=== PATIENT | female | born 1960 | race Caucasian/White ===

== ENCOUNTER → 2016-06-11 | Outpatient (CLI) | payer BC ==
[2016-06-11 09:47] LABS: CH 32.2; CHCM 34.1; HCT 41.9 % (34.0-46.0); HDW 2.75; HGB 14.1 gm/dL (11.4-16.0); MCH 31.9 pg (25.0-35.0); MCHC 33.5 g/dL (31.0-37.0); MCV 95.1 fL (80.0-100.0); Mean Platelet Volume 7.9; RBC 4.41 m/uL (3.80-5.40); RDW 13.6 % (11.5-15.5); WBC 4.7 k/uL (3.8-10.6)
[2016-06-11 10:44] LABS: ALT 47 U/L (9-52); AST 27 U/L (14-36); Alkaline Phosphatase 63 U/L (38-126); Anion Gap 8 mmol/L; Blood Urea Nitrogen 21 mg/dL (7-17); Calcium 9.2 mg/dL (8.4-10.2); Carbon Dioxide 27 mmol/L (22-30); Chloride 106 mmol/L (98-107); Glucose 104 mg/dL (74-99); Non-African American GFR(MDRD) >60 (>60 ml/min/1.73 sqM); Potassium 4.7 mmol/L (3.5-5.1); Sodium 141 mmol/L (137-145); Total Bilirubin 0.7 mg/dL (0.2-1.3); Total Protein 6.7 g/dL (6.3-8.2)
== END | disposition home or self-care (01) ==
LOC: LABWHC1 09:09
PROVIDERS: ATTEND Psychiatry & Neurology Psychiatry
DX: E78.5 Hyperlipidemia, unspecified (principal); E03.9 Hypothyroidism, unspecified; Z79.899 Other long term (current) drug therapy
CPT/HCPCS: 36415; 80053; 84439; 84443; 85027

== ENCOUNTER → 2016-08-04 | Outpatient (CLI) | payer BC ==
[2016-08-04 07:53] LABS: Cholesterol 195 mg/dL (<200); HDL Cholesterol 48 mg/dL (40-60); Triglycerides 194 mg/dL (<150)
[2016-08-04 08:27] LABS: Hemoglobin A1C 5.6 % (4.2-6.1)
== END | disposition home or self-care (01) ==
LOC: LABWHC1 06:41
PROVIDERS: ATTEND Psychiatry & Neurology Psychiatry
DX: E78.5 Hyperlipidemia, unspecified (principal); E11.9 Type 2 diabetes mellitus without complications
CPT/HCPCS: 36415; 80061; 83036

== ENCOUNTER → 2016-11-30 | Outpatient (CLI) | payer BC ==
[2016-11-30 08:02] LABS: Glucose 95 mg/dL (74-99); Total Protein 6.6 g/dL (6.3-8.2)
[2016-11-30 08:03] LABS: ALT 60 U/L (9-52); AST 32 U/L (14-36); Alkaline Phosphatase 75 U/L (38-126); Anion Gap 6 mmol/L; Blood Urea Nitrogen 10 mg/dL (7-17); CH 32.1; CHCM 34.4; Calcium 9.2 mg/dL (8.4-10.2); Carbon Dioxide 29 mmol/L (22-30); Chloride 106 mmol/L (98-107); Cholesterol 224 mg/dL (<200); HCT 39.6 % (34.0-46.0); HDL Cholesterol 49 mg/dL (40-60); HGB 13.9 gm/dL (11.4-16.0); MCH 33.1 pg (25.0-35.0); MCHC 35.2 g/dL (31.0-37.0); MCV 93.9 fL (80.0-100.0); Mean Platelet Volume 7.7; Non-African American GFR(MDRD) >60 (>60 ml/min/1.73 sqM); Potassium 4.7 mmol/L (3.5-5.1); RBC 4.22 m/uL (3.80-5.40); RDW 13.8 % (11.5-15.5); Sodium 141 mmol/L (137-145); Total Bilirubin 0.5 mg/dL (0.2-1.3); WBC 4.5 k/uL (3.8-10.6)
== END | disposition home or self-care (01) ==
LOC: LABWHC1 06:49
PROVIDERS: ATTEND Psychiatry & Neurology Psychiatry
DX: E78.5 Hyperlipidemia, unspecified (principal); E03.9 Hypothyroidism, unspecified; Z79.899 Other long term (current) drug therapy
CPT/HCPCS: 36415; 80053; 80061; 84439; 84443; 85027

== ENCOUNTER → 2017-04-23 | Outpatient (CLI) | payer BC ==
[2017-04-23 07:39] LABS: Basophils # (A) 0.1 k/uL (0-0.2); Basophils % (A) 1 %; Eosinophils # (A) 0.2 k/uL (0-0.7); Eosinophils % (A) 3 %; HGB 14.2 gm/dL (11.4-16.0); Lymphocytes # (A) 1.8 k/uL (1.0-4.8); Lymphocytes % (A) 31 %; MCH 31.7 pg (25.0-35.0); MCHC 33.7 g/dL (31.0-37.0); Mean Platelet Volume 7.3; Monocytes # (A) 0.5 k/uL (0-1.0); Monocytes % (A) 9 %; Neutrophils # (A) 3.1 k/uL (1.3-7.7); Neutrophils % (A) 53 %; Platelet Count 268 k/uL (150-450); RBC 4.46 m/uL (3.80-5.40); RDW 14.1 % (11.5-15.5); WBC 5.8 k/uL (3.8-10.6)
[2017-04-23 09:14] LABS: Albumin 3.9 g/dL (3.5-5.0); Bilirubin, Delta 0.2 mg/dL (0.0-0.2); Bilirubin,Unconjugated 0.3 mg/dL (0.0-1.1); Total Bilirubin 0.5 mg/dL (0.2-1.3); Total Protein 6.6 g/dL (6.3-8.2)
[2017-04-23 09:30] LABS: T4, Free (Free Thyroxine) 1.14 ng/dL (0.78-2.19)
[2017-04-23 12:09] LABS: Hepatitis A Antibody IgM Non-Reactive (Non-Reactive); Hepatitis B Core IgM Non-Reactive (Non-Reactive)
== END | disposition home or self-care (01) ==
LOC: LABWHC1 06:35
PROVIDERS: ATTEND Family Medicine
DX: E03.9 Hypothyroidism, unspecified (principal); R74.8 Abnormal levels of other serum enzymes; E78.2 Mixed hyperlipidemia
CPT/HCPCS: 36415; 80061; 80074; 80076; 82550; 84439; 84443; 84481; 85025

== ENCOUNTER → 2017-05-10 | Outpatient (CLI) | payer BC ==
--- NOTE | 2017-05-10 14:00 | US ---
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 F/U previous GLAND SIZE: Right Lobe: 3.6 x 0.9 x 1.1 cm Overall Parenchyma: homogenous Left Lobe: 3.5 x 1.6 x 1.4 cm Overall Parenchyma: heterogeneous Isthmus Thickness: 0.2 cm NODULES RIGHT: # of nodules measured on right: 1 1. 0.5 X 0.3 x 0.4 cm hypoechoic solid nodule at the mid pole with well-defined margins; This nodu le is wider than tall and shows intranodular vascularity. Prior size: Not visualized on prior LEFT: # of nodules measured on left: 1 1. 2.4 X 1.6 x 1.4 cm isoechoic solid nodule at the mid pole with well-defined margins; This nodul e is wider than tall and shows intranodular vascularity. Prior size: 1.8 x 1.4 x 1.2 cm ISTHMUS: # of nodules measured in the isthmus: 2 1. 1.4 X 0.5 x 1.1 cm isoechoic solid nodule with well-defined margins This nodule is and shows in tranodular vascularity. Prior size: 1.2 x 0.4 x 1.3 cm 2. 1.0 X 0.6 x 0.9 cm hypoechoic mixed nodule with well-defined margins; This nodule is wider than tall and shows intranodular vascularity. Prior size: 1.1 x 0.9 x 0.8 cm Bilateral neck scanned, no evidence of lymphadenopathy. Left lobe nodule increased in size/ Mixed ist hmus nodule probable right medial nodule as seen on previous, unchanged Thyroid gland is overall small in size and fairly homogeneous in echotexture with a large oval fairly isoechoic solid nodule occupying majority of mid to lower pole level left thyroid. IMPRESSION: Small size thyroid with scattered nodules redemonstrated, peripheral hypervascular dominant 2.4 cm so lid nodule left thyroid lobe is slightly larger in size based on measurements.
== END | disposition home or self-care (01) ==
LOC: RADUSWWP 13:10
PROVIDERS: ATTEND Family Medicine
DX: E04.2 Nontoxic multinodular goiter (principal)
CPT/HCPCS: 76536

== ENCOUNTER 2017-09-02 12:04 | Day surgery (SDC) | payer BC ==
[2017-09-02 12:27] VITALS: TEMP 98.2
[2017-09-02 13:29] VITALS: BP 130/75; PULSE 63; RESP 14
--- NOTE | 2017-09-02 15:00 | US ---
EXAMINATION TYPE: US FNA thyroid DATE OF EXAM: 09/02/2017 COMPARISON: Ultrasound 05/10/2017 HISTORY: Thyroid nodule. Maximal barrier technique was utilized. After informed consent, skin overlying the lesion was locali zed with ultrasound and the overlying skin prepped and draped. Ultrasound was utilized using sterile technique. Lidocaine was used for local anesthesia. Four passes with a 25-gauge needle were made into the midline nodule and aspirated specimen was submitted to cytology. Following the procedure hemost asis achieved. No immediate complication. The patient discharged in stable condition. IMPRESSION: STATUS POST ULTRASOUND GUIDED FINE NEEDLE ASPIRATION OF MIDLINE ISTHMUS THYROID NODULE, P ATHOLOGY IS PENDING. THIS PROCEDURE WAS PERFORMED BY THE UNDERSIGNED.
--- NOTE | 2017-09-02 15:16 | US ---
EXAMINATION TYPE: US FNA thyroid DATE OF EXAM: 09/02/2017 COMPARISON: Thyroid ultrasound 05/10/2017 HISTORY: Thyroid nodule. Maximal barrier technique was utilized. After informed consent, skin overlying the lesion was locali zed with ultrasound and the overlying skin prepped and draped. Ultrasound was utilized using sterile technique. Lidocaine was used for local anesthesia. Four passes with a 25-gauge needle were made int o the nodule and aspirated specimen was submitted to cytology. Following the procedure hemostasis ac hieved. No immediate complication. The patient discharged in stable condition. IMPRESSION: STATUS POST ULTRASOUND GUIDED FINE NEEDLE ASPIRATION OF RIGHT-SIDED ISTHMUS THYROID NODUL E, PATHOLOGY IS PENDING. THIS PROCEDURE WAS PERFORMED BY THE UNDERSIGNED.
== END 2017-09-02 13:42 | disposition home or self-care (01) ==
LOC: RADPROMAIN 12:04
PROVIDERS: ATTEND Otolaryngology
DX: E04.2 Nontoxic multinodular goiter (principal)
CPT/HCPCS: 10022; 76942; 88173; 88305

== ENCOUNTER → 2017-12-27 | Outpatient (CLI) | payer BC ==
--- NOTE | 2017-12-27 10:01 | MM ---
Reason for exam: screening (asymptomatic). Last mammogram was performed 1 year ago. History: Patient is postmenopausal. Benign left breast US guided needle locali of the left breast, July 29, 2009. Benign US left guided VAD of the left breast, July 02, 2009. Took hormonal contraceptives for 4 years beginning at age 19. Physical Findings: A clinical breast exam by your physician is recommended on an annual basis and results should be correlated with mammographic findings. MG 3D Screening Mammo W/Cad Bilateral CC and MLO view(s) were taken. Prior study comparison: December 24, 2016, bilateral MG screening mammo w CAD. December 04, 2015, bilateral MG screening mammo w CAD. The breast tissue is heterogeneously dense. This may lower the sensitivity of mammography. There is no discrete abnormality. ASSESSMENT: Negative, BI-RAD 1 RECOMMENDATION: Routine screening mammogram of both breasts in 1 year.
== END ==
LOC: RADMAMWWP 08:16
PROVIDERS: ATTEND Obstetrics & Gynecology
DX: Z12.31 Encounter for screening mammogram for malignant neoplasm of breast (principal)
CPT/HCPCS: 77063; 77067

== ENCOUNTER → 2018-03-16 | Outpatient (CLI) | payer BC ==
--- NOTE | 2018-03-16 22:53 | US ---
EXAMINATION TYPE: US thyroid st tissue head/neck DATE OF EXAM: 03/16/2018 COMPARISON: Prior thyroid ultrasound May 10, 2017 CLINICAL HISTORY: E04.1 Thyroid Nodules. 6 Month f/u GLAND SIZE: Right Lobe: 3.2 x .8 x 1.0 cm Overall Parenchyma: homogenous Left Lobe: 3.4 x 1.4 x 1.3 cm Overall Parenchyma: heterogeneous Isthmus Thickness: 0.3m NODULES RIGHT: # of nodules measured on right: 1 1. .6X .6 x .5cm hypoechoic solid nodule at the mid pole with well-defined margins; . This nodule i s wider than tall and shows intranodular vascularity. Prior size: .5x .3 x .4cm LEFT: # of nodules measured on left: 1 1. 2.4 1.4x 1.1cmisoechoic solid nodule at the mid pole with well-defined margins; . This nodule is wider than tall and shows intranodular vascularity. Prior size: 2.6 1.6x1.4 cm ISTHMUS: # of nodules measured in the isthmus: 1 1. .9X .4 x .6cm isoechoic solid nodule with well-defined margins; . Prior size: 1.0 .6 x .9cm Bilateral neck scanned, no evidence of lymphadenopathy. Heterogeneous small size thyroid with scattered nodules redemonstrated including dominant stable left -sided 2.4 cm solid nodule. IMPRESSION: Overall stable findings, no new suspicious greater than 1 cm nodules are seen.
== END ==
LOC: RADUSMAIN 17:45
PROVIDERS: ATTEND Otolaryngology
DX: E04.1 Nontoxic single thyroid nodule (principal)
CPT/HCPCS: 76536

== ENCOUNTER → 2018-06-02 | Outpatient (CLI) | payer BC ==
[2018-06-02 07:25] LABS: HCT 44.6 % (34.0-46.0); HGB 14.6 gm/dL (11.4-16.0); MCHC 32.8 g/dL (31.0-37.0); MCV 94.5 fL (80.0-100.0); Mean Platelet Volume 6.8; Platelet Count 244 k/uL (150-450); RBC 4.72 m/uL (3.80-5.40); WBC 4.7 k/uL (3.8-10.6)
[2018-06-02 11:30] LABS: Albumin 4.3 g/dL (3.80-4.90); Albumin/Globulin Ratio 2.15 (1.60-3.17); Anion Gap 7.2 mmol/L (4.00-12.00); Calcium 9.4 mg/dL (8.7-10.3); Carbon Dioxide 28.8 mmol/L (21.6-31.8); LDL Cholesterol,Calculated 109.6 mg/dL (0.0-131.0); Potassium 4.5 mmol/L (3.5-5.5); Total Bilirubin 0.7 mg/dL (0.2-1.2); Total Protein 6.3 g/dL (6.2-8.2); VLDL Calculation 23.4 mg/dL (5.00-40.00)
== END ==
LOC: LABWHC1 06:49
PROVIDERS: ATTEND Psychiatry & Neurology Psychiatry
DX: E78.5 Hyperlipidemia, unspecified (principal)
CPT/HCPCS: 36415; 80053; 80061; 84443; 85027

== ENCOUNTER → 2018-07-06 | Outpatient (CLI) | payer BC ==
[2018-07-07 00:42] LABS: Hepatitis A Antibody IgM Non-Reactive (Non-Reactive); Hepatitis B Core IgM Non-Reactive (Non-Reactive)
== END | disposition home or self-care (01) ==
LOC: LABWHC1 17:02
PROVIDERS: ATTEND Psychiatry & Neurology Psychiatry
DX: K75.9 Inflammatory liver disease, unspecified (principal)
CPT/HCPCS: 36415; 80074

== ENCOUNTER → 2018-07-15 | Outpatient (CLI) | payer BC ==
--- NOTE | 2018-07-15 08:43 | US ---
EXAMINATION TYPE: US liver DATE OF EXAM: 07/15/2018 COMPARISON: NONE CLINICAL HISTORY: K75.9 Inflammatory liver disease, unspecified. Elevated liver enzymes EXAM MEASUREMENTS: Liver Length: 14.6 cm Gallbladder Wall: 0.2 cm CBD: 0.4 cm Right Kidney: 11.3 x 5.7 x 5.3 cm Pancreas: visualized portions wnl, limited by overlying midline bowel gas Liver: attenuating, increased echogenicity with decreased visualization of vessels, heterogeneous wi th 1.8cm hypoechoic area adjacent to gallbladder Gallbladder: wnl Evidence for sonographic Barillas's sign: no CBD: wnl Right Kidney: wnl IMPRESSION: 1. Correlate for hepatic steatosis.
== END | disposition home or self-care (01) ==
LOC: RADUSWWP 07:56
PROVIDERS: ATTEND Psychiatry & Neurology Psychiatry
DX: K75.9 Inflammatory liver disease, unspecified (principal)
CPT/HCPCS: 76705

== ENCOUNTER → 2018-10-17 | Outpatient (CLI) | payer BC ==
[2018-10-17 16:11] LABS: Albumin 3.7 g/dL (3.80-4.90); Albumin/Globulin Ratio 2.85 (1.60-3.17); Bilirubin, Conjugated 0.2 mg/dL (0.20-0.40); Bilirubin,Unconjugated 0.5 mg/dL; Globulin 1.3 g/dL (1.6-3.3); Total Bilirubin 0.7 mg/dL (0.2-1.2)
== END | disposition home or self-care (01) ==
LOC: LABWHC1 12:11
PROVIDERS: ATTEND Psychiatry & Neurology Psychiatry
DX: R94.5 Abnormal results of liver function studies (principal)
CPT/HCPCS: 36415; 80076

== ENCOUNTER → 2018-12-29 | Outpatient (CLI) | payer BC ==
[2018-12-29 15:41] LABS: Albumin 4.4 g/dL (3.80-4.90); Albumin/Globulin Ratio 2.32 (1.60-3.17); Bilirubin, Conjugated 0.2 mg/dL (0.20-0.40); Bilirubin,Unconjugated 0.6 mg/dL; Globulin 1.9 g/dL (1.6-3.3); Total Bilirubin 0.8 mg/dL (0.3-1.2); Total Protein 6.3 g/dL (6.2-8.2)
== END | disposition home or self-care (01) ==
LOC: LABWHC1 06:32
PROVIDERS: ATTEND Psychiatry & Neurology Psychiatry
DX: R94.5 Abnormal results of liver function studies (principal)
CPT/HCPCS: 36415; 80076

== ENCOUNTER → 2018-12-29 | Outpatient (CLI) | payer BC ==
--- NOTE | 2018-12-30 13:57 | MM ---
Reason for exam: screening (asymptomatic). Last mammogram was performed 1 year ago. History: Patient is postmenopausal. Benign left breast US guided needle locali of the left breast, July 29, 2009. Benign US left guided VAD of the left breast, July 02, 2009. Took hormonal contraceptives for 4 years beginning at age 19. Physical Findings: A clinical breast exam by your physician is recommended on an annual basis and results should be correlated with mammographic findings. MG 3D Screening Mammo W/Cad Bilateral CC and MLO view(s) were taken. Prior study comparison: December 27, 2017, bilateral MG 3d screening mammo w/cad. December 24, 2016, bilateral MG screening mammo w CAD. The breast tissue is heterogeneously dense. This may lower the sensitivity of mammography. No significant changes when compared with prior studies. ASSESSMENT: Benign, BI-RAD 2 RECOMMENDATION: Routine screening mammogram of both breasts in 1 year.
== END | disposition home or self-care (01) ==
LOC: RADMAMWWP 06:45
PROVIDERS: ATTEND Obstetrics & Gynecology
DX: Z12.31 Encounter for screening mammogram for malignant neoplasm of breast (principal)
CPT/HCPCS: 77063; 77067

== ENCOUNTER → 2019-02-24 | Outpatient (CLI) | payer BC ==
--- NOTE | 2019-02-24 07:34 | BD ---
EXAMINATION TYPE: Axial Bone Density DATE OF EXAM: 02/24/2019 COMPARISON: NONE CLINICAL HISTORY: Height: 5 FT 3 1/2 IN Weight: 204 FRAX RISK QUESTIONS: History of Fracture in Adulthood: YES Secondary Osteoporosis: 3. Menopause before 45: UNSURE RISK FACTORS HISTORY OF: Active: YES Postmenopausal woman: LATE 40'S EARLY 50'S MEDICATIONS: Thyroid Medications: YES Which medication: LEVOTHYROXINE How Long: YEARS Additional Medications: LEVOTHYROXINE, CHOLESTEROL MEDS Additional History: EXAM MEASUREMENTS: Bone mineral densitometry was performed using the [employer]. Bone mineral density as measured about the Lumbar spine is: ----- L1-L4(G/cm2): 1.283 T Score Values are as follows: ----- L2: 0.7 ----- L3: 1.2 ----- L4: 1.0 ----- L1-L4: 0.9 BASELINE Bone mineral density about the R hip (g/cm2): 0.996 Bone mineral density about the L hip (g/cm2): 0.918 T Score values are as follows: -----R Neck: -0.3 -----L Neck: -0.9 -----R Total: 0.6 -----L Total: 0.4 BASELINE Bone mineral density about the R Wrist (g/cm2): Bone mineral density about the L Wrist (g/cm2): T Score values are as follows: -----Dist. R+U: -----Prox. R+U: -----Radius total: Bone mineral density has: % since study of: IMPRESSION: No evidence for osteoporosis or osteopenia. NOTE: T-SCORE=SD OF THE YOUNG ADULT MEAN.
== END | disposition home or self-care (01) ==
LOC: RADBDWWP 07:02
PROVIDERS: ATTEND Obstetrics & Gynecology
DX: Z13.820 Encounter for screening for osteoporosis (principal); N95.1 Menopausal and female climacteric states
CPT/HCPCS: 77080

== ENCOUNTER → 2019-03-10 | Outpatient (CLI) | payer BC ==
--- NOTE | 2019-03-10 16:12 | US ---
EXAMINATION TYPE: US thyroid st tissue head/neck DATE OF EXAM: 03/10/2019 COMPARISON: Thyroid ultrasound March 16, 2018 CLINICAL HISTORY: E04.1 thyroid nodule. GLAND SIZE: Right Lobe: 2.8 x 0.9 x 0.6 cm Overall Parenchyma: homogenous Left Lobe: 4.1 x 1.6 x 1.5 cm Overall Parenchyma: heterogeneous Isthmus Thickness: 0.4 cm NODULES RIGHT: # of nodules measured on right: 1 1. 0.5 X 0.4 x 0.3 cm hypoechoic solid nodule at the lower pole with well-defined margins. This no dule is wider than tall and shows no intranodular vascularity. Prior size: 0.6 x 0.5 x 0.6 cm LEFT: # of nodules measured on left: 2 1. 2.6 X 1.3 x 1.4 cm hypoechoic solid nodule at the lower pole with well-defined margins. This no dule is wider than tall and shows intranodular vascularity; Previously biopsied per patient history. Prior size: 2.4 x 1.1 x 1.4 cm 2. 0.3 X 0.4 x 0.3 cm hypoechoic cystic nodule at the upper pole with well-defined margins. This no dule is wider than tall and shows no intranodular vascularity. not previously seen ISTHMUS: # of nodules measured in the isthmus: 1 1. 0.8 X 0.4 x 0.4 cm isoechoic mixed nodule at the lower pole with poorly defined margins. This n odule is wide as is tall and shows no intranodular vascularity. Prior size: 0.9 x 0.6 x 0.4 cm Bilateral neck scanned: no evidence of lymphadenopathy. Persistent overall small thyroid with asymmetric diminished size right thyroid lobe and scattered sta ble small nodules along with dominant left-sided nodule which has been biopsied in the past. No new s uspicious greater than 1 cm nodules. IMPRESSION: As above.
== END | disposition home or self-care (01) ==
LOC: RADUSWWP 15:29
PROVIDERS: ATTEND Otolaryngology
DX: E04.2 Nontoxic multinodular goiter (principal); R22.0 Localized swelling, mass and lump, head
CPT/HCPCS: 76536

== ENCOUNTER 2019-03-14 08:25 | Day surgery (SDC) | payer BC ==
[2019-03-13 09:01] VITALS: BMI 35.2
[~2019-03-14 08:25] MED LIST: DEXAMETHASONE SOD PHOSPHATE 10 MG/ML 1 ML VIAL IV ONE; LACTATED RINGERS 1,000 ML IV SCH; LIDOCAINE 1% 20 ML VIAL (10MG/ML) FOR IV START INTRADERMA PRN
[2019-03-14 09:36] VITALS: RESP 16; TEMP 97.5
[2019-03-14] MEDS ORDERED: PROPOFOL 10 MG/ML 20 ML VIAL IV ONE (11:03)
--- NOTE | 2019-03-14 11:45 | P.PCN ---
Date of Procedure: 03/14/19 Description of Procedure: BRIEF HISTORY: Patient is a 59-year-old female presenting for outpatient colonoscopy for evaluation of symptoms of altered bowel habits/change in bowel habits. She reports intermittent episodes of loose stool. No increased frequency of bowel movements. No blood per rectum. No family history of colon cancer. PROCEDURE PERFORMED: Colonoscopy with biopsy and polypectomy. PREOPERATIVE DIAGNOSIS: Change in bowel habits, last colonoscopy at the age of 51. ESTIMATED BLOOD LOSS: Minimal. IV sedation per Anesthesia. PROCEDURE: After informed consent was obtained, the patient, was brought into the endoscopy unit. IV sedation was administered by Anesthesia under continuous monitoring. Digital rectal examination was normal. Initially the Olympus CF-190 flexible video colonoscope was then inserted in the rectum, gradually advanced into the cecum without any difficulty. Careful examination was performed as the scope was gradually being withdrawn. Ileocecal valve and the appendiceal orifice were visualized and appeared normal. Prep was excellent. Mucosa of the cecum, ascending colon, transverse colon, descending colon, sigmoid colon, and rectum appeared normal, with biopsies of the right and left colon taken in the setting of altered bowel function. Terminal ileum intubated and appeared normal biopsies taken. Mild sigmoid diverticulosis noted. Diminutive 3 mm transverse colon polyp removed with cold forceps polypectomy. Large 12 mm sigmoid colon polyp removed with hot snare polypectomy. Retroflexion was performed in the rectum and no lesions were seen. The patient tolerated the procedure well. IMPRESSION: Diminutive transverse colon polyp removed with cold forceps. Large sigmoid polyp removed with hot snare polypectomy. Normal-appearing colon from rectum to cecum and normal appearing terminal ileum with random biopsies taken of the terminal ileum, right colon and left colon the setting of altered bowel function. RECOMMENDATIONS: Findings of this examination were discussed with the patient and her . Okay to resume diet. Await pathology from polypectomies. Anticipate repeat colonoscopy in 3 years for high-risk colon polyp.
[2019-03-14 11:59] VITALS: BP 128/67; PULSE 58
== END 2019-03-14 12:18 | disposition home or self-care (01) ==
LOC: ORWHC2ENDO 08:25
PROVIDERS: ATTEND Internal Medicine
DX: D12.5 Benign neoplasm of sigmoid colon (principal); D12.3 Benign neoplasm of transverse colon; K57.30 Diverticulosis of large intestine without perforation or abscess without bleeding; E78.5 Hyperlipidemia, unspecified; K21.9 Gastro-esophageal reflux disease without esophagitis; E07.9 Disorder of thyroid, unspecified; Z87.891 Personal history of nicotine dependence; Z88.0 Allergy status to penicillin; Z79.890 Hormone replacement therapy; Z79.899 Other long term (current) drug therapy; Z98.51 Tubal ligation status; Z98.890 Other specified postprocedural states
CPT/HCPCS: 88305; 45385; 45380; J2704

== ENCOUNTER → 2019-08-21 | Outpatient (CLI) | payer BC ==
[2019-08-21 10:05] LABS: HCT 44.3 % (34.0-46.0); HGB 14.2 gm/dL (11.4-16.0); MCH 30.9 pg (25.0-35.0); MCHC 32.1 g/dL (31.0-37.0); MCV 96.2 fL (80.0-100.0); Mean Platelet Volume 8.1; Platelet Count 232 k/uL (150-450); RDW 13.4 % (11.5-15.5); WBC 5.3 k/uL (3.8-10.6)
[2019-08-21 16:29] LABS: African American GFR (CKD) 81.7 (60.0-200.0); Anion Gap 7.7 mmol/L (4.00-12.00); BUN/Creat Ratio 18.89 Ratio (12.00-20.00); Bilirubin, Conjugated 0.2 mg/dL (0.20-0.40); Bilirubin,Unconjugated 0.4 mg/dL; Calcium 8.7 mg/dL (8.7-10.3); Carbon Dioxide 25.3 mmol/L (21.6-31.8); Chol/HDL Ratio 3.73; LDL Cholesterol,Calculated 111.2 mg/dL (0.0-131.0); Non-African American GFR(CKD) 70.5 (60.0-200.0); Potassium 4.2 mmol/L (3.5-5.5); Total Bilirubin 0.6 mg/dL (0.2-1.2); VLDL Calculation 22.8 mg/dL (5.00-40.00)
== END | disposition home or self-care (01) ==
LOC: LABWHC1 07:44
PROVIDERS: ATTEND Psychiatry & Neurology Psychiatry
DX: E03.9 Hypothyroidism, unspecified (principal); Z79.899 Other long term (current) drug therapy
CPT/HCPCS: 36415; 80048; 80061; 80076; 84439; 84443; 85027

== ENCOUNTER → 2020-01-01 | Outpatient (CLI) | payer BC ==
--- NOTE | 2020-01-02 08:31 | MM ---
Reason for exam: screening (asymptomatic). Last mammogram was performed 1 year ago. History: Patient is postmenopausal. Benign left breast US guided needle locali of the left breast, July 29, 2009. Benign US left guided VAD of the left breast, July 02, 2009. Took hormonal contraceptives for 4 years beginning at age 19. Physical Findings: A clinical breast exam by your physician is recommended on an annual basis and results should be correlated with mammographic findings. MG 3D Screening Mammo W/Cad Bilateral CC and MLO view(s) were taken. Prior study comparison: December 29, 2018, bilateral MG 3d screening mammo w/cad. December 27, 2017, bilateral MG 3d screening mammo w/cad. The breast tissue is heterogeneously dense. This may lower the sensitivity of mammography. No significant changes when compared with prior studies. ASSESSMENT: Benign, BI-RAD 2 RECOMMENDATION: Routine screening mammogram of both breasts in 1 year.
== END | disposition home or self-care (01) ==
LOC: RADMAMWWP 09:36
PROVIDERS: ATTEND Obstetrics & Gynecology
DX: Z12.31 Encounter for screening mammogram for malignant neoplasm of breast (principal)
CPT/HCPCS: 77063; 77067

== ENCOUNTER → 2020-03-15 | Outpatient (CLI) | payer BC ==
--- NOTE | 2020-03-15 15:55 | US ---
EXAMINATION TYPE: US thyroid st tissue head/neck DATE OF EXAM: 03/15/2020 COMPARISON: 03/10/2019 CLINICAL HISTORY: E04.1 THYROID NODULE. GLAND SIZE: Right Lobe: 2.5 x 0.6 x 0.9 cm Overall Parenchyma: heterogenous Left Lobe: 3.9 x 1.6 x 1.6 cm Overall Parenchyma: heterogeneous Isthmus Thickness: 0.3 cm NODULES RIGHT: # of nodules measured on right: 1 1. 0.4 X 0.3 x 0.3 cm solid or almost completely solid, hypoechoic nodule, which is wider than tall , with smooth margins, without echogenic foci. Prior size: 0.5 x 0.4 x 0.3 cm LEFT: # of nodules measured on left: 1 1. 2.4 X 1.5 x 1.5 cm solid or almost completely solid, isoechoic nodule, which is wider than tall, with smooth margins, without echogenic foci. Prior size: 2.6 x 1.3 x 1.4 cm ISTHMUS: # of nodules measured in the isthmus: 1. 0.6 X 0.3 x 0.8 cm solid or almost completely solid, isoechoic nodule, which is wider than tall, with smooth margins, without echogenic foci. Prior size: 0.8 x 0.4 x 0.4 cm Bilateral neck scanned, no evidence of lymphadenopathy. IMPRESSION: 1. Stable bilateral thyroid nodules
== END | disposition home or self-care (01) ==
LOC: RADUSWWP 14:56
PROVIDERS: ATTEND Otolaryngology
DX: E04.2 Nontoxic multinodular goiter (principal)
CPT/HCPCS: 76536

== ENCOUNTER → 2020-07-11 | Outpatient (CLI) | payer BC ==
[2020-07-11 15:51] LABS: HCT 43.6 % (37.2-46.3); HGB 14.2 g/dL (12.0-15.0); MCH 31.4 pg (27.0-32.0); MCHC 32.6 g/dL (32.0-37.0); MCV 96.5 fL (80.0-97.0); Mean Platelet Volume 11.2 fL (9.5-12.2); Platelet Count 252 X 10*3/uL (140-440); RBC 4.52 X 10*6/uL (4.10-5.20); RDW 13.8 % (11.5-14.5); WBC 6.05 X 10*3/uL (4.50-10.00)
[2020-07-11 20:05] LABS: African American GFR (CKD) 81.1 (60.0-200.0); Albumin 4.3 g/dL (3.80-4.90); Albumin/Globulin Ratio 2.26 (1.60-3.17); Anion Gap 7.8 mmol/L (4.00-12.00); BUN/Creat Ratio 15.56 Ratio (12.00-20.00); Calcium 9.3 mg/dL (8.7-10.3); Carbon Dioxide 26.2 mmol/L (21.6-31.8); Chol/HDL Ratio 3.86; Globulin 1.9 g/dL (1.6-3.3); LDL Cholesterol,Calculated 120.6 mg/dL (0.0-131.0); Potassium 4.4 mmol/L (3.5-5.5); Total Bilirubin 0.6 mg/dL (0.2-1.2); Total Protein 6.2 g/dL (6.2-8.2); VLDL Calculation 19.4 mg/dL (5.00-40.00)
== END | disposition home or self-care (01) ==
LOC: LABWHC1 07:13
PROVIDERS: ATTEND Psychiatry & Neurology Psychiatry
DX: F33.0 Major depressive disorder, recurrent, mild (principal); Z79.899 Other long term (current) drug therapy
CPT/HCPCS: 36415; 80053; 80061; 84439; 84443; 85027

== ENCOUNTER → 2020-10-25 | Outpatient (CLI) | payer BC ==
--- NOTE | 2020-10-26 02:48 | MR ---
EXAMINATION TYPE: MR knee LT wo con DATE OF EXAM: 10/25/2020 COMPARISON: None HISTORY: Left knee pain and swelling since august 2020 due to fall and twisting knee. Multiplanar multiecho imaging of the left knee without contrast. There is a moderate knee joint effusion. There is hypertrophic spurring of the femoral and tibial con dyles. This is seen mainly on the medial joint space. There is horizontal increased signal through th e posterior horn medial meniscus. The lateral meniscus appears intact. I see no evidence of a fractur e. The anterior and posterior cruciate ligaments are intact. The collateral ligaments are intact. Patell a is intact. IMPRESSION: No evidence of ligamentous tear. Moderate knee joint effusion. Horizontal tear within the posterior h orn of the medial meniscus. There are some hypertrophic mild osteoarthritic changes in the medial abby nt space. Mild medial joint space narrowing. No fracture seen. Minimal edema measuring less than 1 cm on the medial aspect medial femoral condyle.
== END | disposition home or self-care (01) ==
LOC: RADMRIMAIN 20:22
PROVIDERS: ATTEND Family Medicine
DX: M23.322 Other meniscus derangements, posterior horn of medial meniscus, left knee (principal); M17.12 Unilateral primary osteoarthritis, left knee; R60.0 Localized edema

== ENCOUNTER → 2020-11-05 | Outpatient (CLI) | payer BC ==
[2020-11-05 22:34] LABS: Albumin 4.1 g/dL (3.80-4.90); Albumin/Globulin Ratio 1.78 (1.60-3.17); Bilirubin, Conjugated 0.2 mg/dL (0.20-0.40); Bilirubin,Unconjugated 0.4 mg/dL; Globulin 2.3 g/dL (1.6-3.3); Total Bilirubin 0.6 mg/dL (0.2-1.2); Total Protein 6.4 g/dL (6.2-8.2)
== END | disposition home or self-care (01) ==
LOC: LABWHC1 13:56
PROVIDERS: ATTEND Psychiatry & Neurology Psychiatry
DX: K75.9 Inflammatory liver disease, unspecified (principal)
CPT/HCPCS: 36415; 80076

== ENCOUNTER → 2021-01-03 | Outpatient (CLI) | payer BC ==
--- NOTE | 2021-01-07 09:58 | MM ---
Reason for exam: screening (asymptomatic). Last mammogram was performed 1 year ago. History: Patient is postmenopausal. Benign left breast US guided needle locali of the left breast, July 29, 2009. Benign US left guided VAD of the left breast, July 02, 2009. Took hormonal contraceptives for 4 years beginning at age 19. Physical Findings: A clinical breast exam by your physician is recommended on an annual basis and results should be correlated with mammographic findings. MG 3D Screening Mammo W/Cad Bilateral CC and MLO view(s) were taken. Prior study comparison: January 01, 2020, bilateral MG 3d screening mammo w/cad. December 29, 2018, bilateral MG 3d screening mammo w/cad. December 27, 2017, bilateral MG 3d screening mammo w/cad. The breast tissue is heterogeneously dense. This may lower the sensitivity of mammography. Possible underlying distortion superior left MLO view. ASSESSMENT: Incomplete: need additional imaging evaluation, BI-RAD 0 RECOMMENDATION: Special view mammogram of the left breast. (3D) Ultrasound of the left breast. [facility] will attempt to contact patient to return for supplemental views and ultrasound.
== END | disposition home or self-care (01) ==
LOC: RADMAMWWP 16:17
PROVIDERS: ATTEND Obstetrics & Gynecology
DX: Z12.31 Encounter for screening mammogram for malignant neoplasm of breast (principal)
CPT/HCPCS: 77063; 77067

== ENCOUNTER → 2021-01-16 | Outpatient (CLI) | payer BC ==
--- NOTE | 2021-01-16 11:16 | MM ---
Reason for exam: additional evaluation requested from abnormal screening. Last mammogram was performed less than 1 month ago. History: Patient is postmenopausal. Benign left breast US guided needle locali of the left breast, July 29, 2009. Benign US left guided VAD of the left breast, July 02, 2009. Took hormonal contraceptives for 4 years beginning at age 19. Physical Findings: Nurse did not find any significant physical abnormalities on exam. MG 3D Work Up W/Cad LT Spot compression CC, spot compression MLO, and ML view(s) were taken of the left breast. Prior study comparison: January 03, 2021, bilateral MG 3d screening mammo w/cad. January 01, 2020, bilateral MG 3d screening mammo w/cad. The breast tissue is heterogeneously dense. This may lower the sensitivity of mammography. Finding: Stable architectural distortion in the upper quadrant, middle position of the left breast consistent with excisional changes. These results were verbally communicated with the patient and result sheet given to the patient on 01/16/21. ASSESSMENT: Benign, BI-RAD 2 RECOMMENDATION: Return to routine screening mammogram schedule for both breasts.
== END | disposition home or self-care (01) ==
LOC: RADMAMWWP 07:04
PROVIDERS: ATTEND Obstetrics & Gynecology
DX: R92.2 Inconclusive mammogram (principal); Z78.0 Asymptomatic menopausal state
CPT/HCPCS: 77061; 77065

== ENCOUNTER → 2021-03-20 | Outpatient (CLI) | payer BC ==
--- NOTE | 2021-03-21 06:55 | US ---
EXAMINATION TYPE: US thyroid st tissue head/neck DATE OF EXAM: 03/20/2021 COMPARISON: Prior thyroid ultrasound March 15, 2020 CLINICAL HISTORY: E04.1 THYROID NODULE. Follow up, currently taking thyroid medication GLAND SIZE: Right Lobe: 3.2 x 0.9x 0.9 cm Overall Parenchyma: heterogenous Left Lobe: 3.4 x 1.8 x 1.6 cm Overall Parenchyma: heterogeneous Isthmus 0.3 cm NODULES RIGHT: # of nodules measured on right: 1 1. 0.5 X 0.4 x 0.3 cm, mid mid, solid or almost completely solid, hypoechoic nodule, which is tall er than wide, with lobulated or irregular margins, without echogenic foci. Prior size: 0.5 x 0.4 x 0.3 cm LEFT: # of nodules measured on left: 1 1. 2.0 X 1.6 x 1.5 cm, lower mid, mixed cystic and solid, hypoechoic nodule, which is wider than ta ll, with lobulated or irregular margins, without echogenic foci. Prior size: 2.6 x 1.3 x 1.4 cm ISTHMUS: # of nodules measured in the isthmus: 1 1. 0.9 X 0.8 x 0.5 cm solid or almost completely solid, isoechoic nodule, which is taller than wide , with lobulated or irregular margins, without echogenic foci. Prior size: 0.8 x 0.4 x 0.4 cm Bilateral neck scanned, no evidence of lymphadenopathy. Left Neck lymph node 0.8 x 0.6 x 0.3 cm Heterogeneous small sized thyroid with scattered bilateral nodules redemonstrated, largest nodule lef t thyroid lobe grossly stable. IMPRESSION: As above. No significant new or enlarging nodules.
== END | disposition home or self-care (01) ==
LOC: RADUSWWP 15:24
PROVIDERS: ATTEND Otolaryngology
DX: E04.2 Nontoxic multinodular goiter (principal)
CPT/HCPCS: 76536

== ENCOUNTER → 2021-11-14 | Outpatient (CLI) | payer BC ==
--- NOTE | 2021-11-14 17:35 | CA ---
Transthoracic Echo Report Name: Nicole Garcia Age: 61 Gender: F : 1960 Exam Date: 11/14/2021 14:57 Exam Location: [place] [facility] Ht (in): 64 Wt (lb): 212 Ordering Physician: Jaren Phipps MD Attending/Referring Phys: Tool Room Gear Machine Operator Cira Stephenson RDCS Procedure CPT: Indications: R01.1 cardiac murmur Cardiac Hx: Technical Quality: Fair Contrast 1: Total Dose (mL): Contrast 2: Total Dose (mL): MEASUREMENTS (Male / Female) Normal Values 2D ECHO LV Diastolic Diameter PLAX 3.7 cm 4.2 - 5.9 / 3.9 - 5.3 cm LV Systolic Diameter PLAX 2.4 cm IVS Diastolic Thickness 1.1 cm 0.6 - 1.0 / 0.6 - 0.9 cm LVPW Diastolic Thickness 1.4 cm 0.6 - 1.0 / 0.6 - 0.9 cm LV Relative Wall Thickness 0.7 RV Internal Dim ED PLAX 2.2 cm LA Volume 51.6 cm??? 18 - 58 / 22 - 52 cm??? M-MODE Aortic Root Diameter MM 2.1 cm LA Systolic Diameter MM 3.6 cm LA Ao Ratio MM 1.7 AV Cusp Separation MM 1.8 cm DOPPLER AV Peak Velocity 153.8 cm/s AV Peak Gradient 9.5 mmHg LVOT Peak Velocity 100.0 cm/s LVOT Peak Gradient 4.0 mmHg MV Area PHT 3.7 cm??? Mitral E Point Velocity 100.4 cm/s Mitral A Point Velocity 89.0 cm/s Mitral E to A Ratio 1.1 MV Deceleration Time 207.8 ms MV E' Velocity 8.5 cm/s Mitral E to MV E' Ratio 11.8 TR Peak Velocity 177.6 cm/s TR Peak Gradient 12.6 mmHg Right Ventricular Systolic Press 17.6 mmHg FINDINGS Left Ventricle Mildly increased left ventricular wall thickness. Normal left ventricular systolic function with no obvious regional wall motion abnormalities. Normal left ventricular diastolic filling pattern. Left ventricular ejection fraction is estimated at 55-60 %. Right Ventricle Normal right ventricular size and function. Right ventricular systolic pressure within normal limits. Right Atrium Normal right atrial size. Left Atrium Normal left atrial size. No evidence for an atrial septal defect. Mitral Valve Structurally normal mitral valve. Mild mitral regurgitation. Aortic Valve Trileaflet aortic valve. No aortic valve stenosis or regurgitation. Tricuspid Valve Structurally normal tricuspid valve. Mild tricuspid regurgitation. Pulmonic Valve Trace pulmonic regurgitation. Pericardium No pericardial effusion. Aorta Normal size aortic root and proximal ascending aorta. CONCLUSIONS Normal LV systolic function Mild mitral regurgitation Mild tricuspid regurgitation Previewed by: Dr. Cruz Rodgers MD (Electronically Signed) Final Date: 14 November 2021 17:34
== END | disposition home or self-care (01) ==
LOC: RADECHMAIN 14:22
PROVIDERS: ATTEND Family Medicine
DX: I34.0 Nonrheumatic mitral (valve) insufficiency (principal); I36.1 Nonrheumatic tricuspid (valve) insufficiency
CPT/HCPCS: 93306

== ENCOUNTER → 2021-12-11 | Outpatient (CLI) | payer BC ==
--- NOTE | 2021-12-11 16:11 | US ---
EXAMINATION TYPE: US carotid duplex BILAT DATE OF EXAM: 12/11/2021 COMPARISON: NONE CLINICAL HISTORY: 61-year-old female R09.89 CAROTID BRUIT. Carotid bruit, prior smoker. Hyperlipidemi a. TECHNIQUE: Carotid duplex ultrasound examination. Indirect Doppler criteria was utilized. FINDINGS: EXAM MEASUREMENTS: RIGHT: Peak Systolic Velocity (PSV) cm/sec ----- Right CCA: 84.2 ----- Right ICA: 95.2 ----- Right ECA: 116.0 ICA/CCA ratio: 1.1 RIGHT: End Diastole cm/sec ----- Right CCA: 24.8 ----- Right ICA: 31.4 ----- Right ECA: 13.7 LEFT: Peak Systolic Velocity (PSV) cm/sec ----- Left CCA: 116.7 ----- Left ICA: 99.1 ----- Left ECA: 104.3 ICA/CCA ratio: 0.8 LEFT: End Diastole cm/sec ----- Left CCA: 24.1 ----- Left ICA: 31.8 ----- Left ECA: 9.8 VERTEBRALS (direction of flow): Right Vertebral: Antegrade Left Vertebral: Antegrade Rhythm: Normal ICE [employer] V[employer] VENDOR NOTES: No elevated velocities at this time. Plaque was seen within bilateral bulb, bilat eral ICA, and left ECA. Hypoechoic area with hyperechoic center seen within the left neck: 1.8 x 1.2 x 0.7 cm. IMPRESSION: 1. Mild to moderate bilateral atherosclerotic plaque at the bifurcations. No hemodynamically signific ant internal carotid artery stenosis on either side. 2. Borderline sized lymph node along the left side of the neck measuring 1.2 cm short axis. Probably reactive/post inflammatory. Follow-up as clinically indicated. Criteria for Assigning % of Stenosis / Diameter reduction (Estimation based on the indirect measurements of the internal carotid artery velocities (ICA PSV). 1. Normal (no stenosis)=ICA PSV < 125 cm/s: ratio < 2.0: ICA EDV<40 cm/s. 2. Less than 50% stenosis=ICA PSV < 125 cm/s: ratio < 2.0: ICA EDV<40 cm/s. 3. 50 to 69% stenosis=ICA PSV of 125 to 230 cm/s: ration 2.0 ? 4.0: ICA EDV 40-100 cm/s. 4. Greater than 70% stenosis to near occlusion= ICA PSV > 230 cm/s: ratio > 4.0: ICA EDV > 100 cm/s. 5. Near occlusion= ICA PSV velocities may be low or undetectable: variable ratio and ICA EDV. 6. Total occlusion=unable to detect flow.
== END | disposition home or self-care (01) ==
LOC: RADUSWWP 15:22
PROVIDERS: ATTEND Family Medicine
DX: I65.23 Occlusion and stenosis of bilateral carotid arteries (principal)
CPT/HCPCS: 93880

== ENCOUNTER → 2022-01-06 | Outpatient (CLI) | payer BC ==
--- NOTE | 2022-01-07 08:07 | MM ---
Reason for Exam: Screening (asymptomatic). Last screening mammogram was performed 12 month(s) ago. Patient History: Menarche at age 15. First Full-Term at age 24. Postmenopausal. Hormonal Contraceptives for 4 years from age 19 until age 23. 07/29/2009, Benign Excisional Biopsy on the left side. 07/02/2009, Benign Core Biopsy on the left side. Risk Values: Kendal 5 year model risk: 1.8%. NCI Lifetime model risk: 8.9%. Prior Study Comparison: 01/01/2020 Bilateral Screening Mammogram, [facility]. 01/03/2021 Bilateral Screening Mammogram, [facility]. 01/16/2021 Left Diagnostic Mammogram, [facility]. Tissue Density: The breast tissue is heterogeneously dense. This may lower the sensitivity of mammography. Findings: Analyzed By CAD. There is no suspicious group of microcalcifications or new suspicious mass in either breast. Overall Assessment: Negative, BI-RAD 1 Management: Screening Mammogram of both breasts in 1 year. A clinical breast exam by your physician is recommended on an annual basis and results should be correlated with mammographic findings. [facility] will attempt to contact patient to return for supplemental views and ultrasound if indicated. Electronically signed and approved by: Conor Unger DO
== END | disposition home or self-care (01) ==
LOC: RADMAMWWP 15:12
PROVIDERS: ATTEND Family Medicine
DX: Z12.39 Encounter for other screening for malignant neoplasm of breast (principal); Z78.0 Asymptomatic menopausal state
CPT/HCPCS: 77063; 77067

== ENCOUNTER → 2022-01-07 | Outpatient (CLI) | payer BC ==
--- NOTE | 2022-01-08 02:53 | MR ---
EXAMINATION TYPE: MR neck wo/w con DATE OF EXAM: 01/07/2022 COMPARISON: None HISTORY: Localized enlarged lymph node CONTRAST: Standard multiplanar, multisequence MRI departmental protocol images were obtained without contrast a nd with 10 mL intravenous Gadavist gadolinium contrast. Multiplanar and multiecho imaging of the neck performed without and with the IV contrast gadolinium. There is a marker placed on the left lateral aspect of the neck at the level of the mandible. This is apparently the area of concern. The submandibular salivary glands are symmetric. Parotid glands are symmetric. There is no evidence o f a posterior fossa mass. Internal auditory canals appear normal. There are small areas of increased fluid signal in the right mastoid sinus. I see no evidence of any significant cervical adenopathy with tongue appears normal. Subglottic trach ea appears normal. Epiglottis is normal. Mandibular ring is intact. Temporomandibular joints appear i ntact. The muscles of the neck are symmetric. No pathologic enhancement. IMPRESSION: Exam fails to show evidence of a discrete neck mass. No evidence of left-sided cervical lymphadenopat hy. Normal salivary glands. There is evidence for some mild right-sided mastoiditis.
== END | disposition home or self-care (01) ==
LOC: RADMRIMAIN 18:56
PROVIDERS: ATTEND Family Medicine
DX: H70.91 Unspecified mastoiditis, right ear (principal)
CPT/HCPCS: 70543; A9585

== ENCOUNTER → 2022-09-03 | Outpatient (CLI) | payer BC ==
--- NOTE | 2022-09-04 06:16 | US ---
EXAMINATION TYPE: US thyroid st tissue head/neck DATE OF EXAM: 09/03/2022 COMPARISON: Prior thyroid ultrasound March 20, 2021 and older studies. CLINICAL INDICATION: Female, 62 years old with history of E04.1 NONTOXIC SINGLE THYROID NODULE; thy n odule GLAND SIZE: Right Lobe: 3.5 x 0.7 x 1.0 cm Overall Parenchyma: homogenous Left Lobe: 4.3 x 1.9 x 2.0 cm Overall Parenchyma: homogeneous Isthmus Thickness: cm NODULES RIGHT: # of nodules measured on right: 0 nodule seen on previous exam not seen on today's study. LEFT: # of nodules measured on left: 1 1. 3.0 X 1.7 x 1.7 cm, mid , solid or almost completely solid, isoechoic nodule, which is wider brooks n tall, with smooth margins, without echogenic foci. Prior size: 2.1 x 1.5 x 1.6 cm ISTHMUS: # of nodules measured in the isthmus: 0 Bilateral neck scanned, no evidence of lymphadenopathy. Homogeneous somewhat small size thyroid redemonstrated with stable dominant left sided isoechoic nodu le accounting for technical differences IMPRESSION: As above. 2017 ACR TI-RADS LEVEL: *Highest TI-RADS level nodule reported
== END | disposition home or self-care (01) ==
LOC: RADUSWWP 16:07
PROVIDERS: ATTEND Otolaryngology
DX: E04.1 Nontoxic single thyroid nodule (principal)
CPT/HCPCS: 76536

== ENCOUNTER → 2023-01-19 | Outpatient (CLI) | payer BC ==
--- NOTE | 2023-01-20 19:07 | MM ---
Reason for Exam: Screening (asymptomatic). Last screening mammogram was performed 12 month(s) ago. Patient History: Menarche at age 15. First Full-Term at age 24. Postmenopausal. Hormonal Contraceptives for 4 years from age 19 until age 23. 07/29/2009, Benign Excisional Biopsy on the left side. 07/02/2009, Benign Core Biopsy on the left side. Risk Values: Kendal 5 year model risk: 1.8%. NCI Lifetime model risk: 8.7%. Prior Study Comparison: 01/03/2021 Bilateral Screening Mammogram, [facility]. 01/16/2021 Left Diagnostic Mammogram, [facility]. 01/06/2022 Bilateral MG 3D screening mammo w/cad, [facility]. Tissue Density: The breast tissue is heterogeneously dense. This may lower the sensitivity of mammography. Findings: Analyzed By CAD. Unchanged asymmetric densities on the left. There is no suspicious group of microcalcifications or new suspicious mass in either breast. Overall Assessment: Benign, BI-RAD 2 Management: Screening Mammogram of both breasts in 1 year. . Patient should continue monthly self-breast exams. A clinical breast exam by your physician is recommended on an annual basis. This exam should not preclude additional follow-up of suspicious palpable abnormalities. Note on Kendal scores and lifetime risk: 1. A Kendal score greater than 3% is considered moderate risk. If this is the case, consider specialist referral to assess eligibility for a risk reducing agent. 2. If overall lifetime risk for the development of breast cancer is 20% or higher, the patient may qualify for future screening with alternating mammogram and breast MRI. Electronically signed and approved by: Randal Fu M.D. Radiologist
== END | disposition home or self-care (01) ==
LOC: RADMAMWWP 07:18
PROVIDERS: ATTEND Family Medicine
DX: Z12.31 Encounter for screening mammogram for malignant neoplasm of breast (principal); Z78.0 Asymptomatic menopausal state
CPT/HCPCS: 77063; 77067

== ENCOUNTER → 2023-09-15 | Outpatient (CLI) | payer BC ==
--- NOTE | 2023-09-15 16:16 | US ---
EXAMINATION TYPE: US thyroid st tissue head/neck DATE OF EXAM: 09/15/2023 COMPARISON: Thyroid ultrasound 09/03/2022, MR neck 01/07/2022, thyroid ultrasound 03/20/2021, 03/15/2020 . Previous FNA 06/01/2014 CLINICAL INDICATION: Female, 63 years old with history of E04.1 NONTOXIC SINGLE THYROID NODULE; F/U GLAND SIZE: Right Lobe: 3.2x1.1x0.9 cm Overall Parenchyma: homogeneous Left Lobe: 4.5x1.9x2.0 cm Overall Parenchyma: homogeneous Isthmus Thickness: 0.2 cm NODULES RIGHT: # of nodules measured on right: 0 LEFT: # of nodules measured on left: 1 1. 3.1 X 1.7 x 1.8 cm, lower mid, solid or almost completely solid, isoechoic nodule, which is wide r than tall, with smooth margins, without echogenic foci. TR 3. Prior size: 3.0 x 1.7 x 1.7 cm on 09/03/2022, 2.0 x 1.6 x 1.5 cm on 03/20/2021 ISTHMUS: # of nodules measured in the isthmus: 1 Bilateral neck scanned, no evidence of lymphadenopathy. IMPRESSION: Stable left thyroid lobe 3.1 cm TR 3 nodule from most recent prior exam 09/03/2022 however this is incr eased in size from prior exam 03/20/2021. Consider repeat FNA as clinically indicated. No new thyroid nodules are identified.
== END | disposition home or self-care (01) ==
LOC: RADUSWWP 14:33
PROVIDERS: ATTEND Otolaryngology
DX: E04.1 Nontoxic single thyroid nodule (principal)
CPT/HCPCS: 76536

== ENCOUNTER → 2023-11-02 | Outpatient (CLI) | payer BC | LOC: CPPFTMAIN 09:07 | PROVIDERS: ATTEND Family Medicine | DX: J45.909 Unspecified asthma, uncomplicated (principal); Z88.0 Allergy status to penicillin; Z87.891 Personal history of nicotine dependence | CPT/HCPCS: 94060; 94726; 94729 ==

== ENCOUNTER → 2024-01-24 | Outpatient (CLI) | payer BC ==
--- NOTE | 2024-01-26 19:00 | MM ---
Reason for Exam: Screening (asymptomatic). Last screening mammogram was performed 12 month(s) ago. Patient History: Menarche at age 15. First Full-Term at age 24. Postmenopausal. Patient has history of breast feeding. Hormonal Contraceptives for 4 years from age 19 until age 23. 07/29/2009, Benign Excisional Biopsy on the left side. 07/02/2009, Benign Core Biopsy on the left side. Risk Values: Kendal 5 year model risk: 1.9%. NCI Lifetime model risk: 8.4%. Prior Study Comparison: 12/24/2016 Bilateral Screening Mammogram, [facility]. 12/27/2017 Bilateral Screening Mammogram, [facility]. 12/29/2018 Bilateral Screening Mammogram, [facility]. 01/01/2020 Bilateral Screening Mammogram, [facility]. 01/03/2021 Bilateral Screening Mammogram, [facility]. 01/16/2021 Left Diagnostic Mammogram, [facility]. 01/06/2022 Bilateral MG 3D screening mammo w/cad, [facility]. 01/19/2023 Bilateral MG 3D screening mammo w/cad, [facility]. Tissue Density: The breasts are heterogeneously dense, which may obscure small masses. Findings: Analyzed By CAD. Unchanged bilateral areas of asymmetric density. There is no suspicious group of microcalcifications or new suspicious mass in either breast. Overall Assessment: Benign, BI-RAD 2 Management: Screening Mammogram of both breasts in 1 year. . Patient should continue monthly self-breast exams. A clinical breast exam by your physician is recommended on an annual basis. This exam should not preclude additional follow-up of suspicious palpable abnormalities. Note on Kendal scores and lifetime risk: 1. A Kendal score greater than 3% is considered moderate risk. If this is the case, consider specialist referral to assess eligibility for a risk reducing agent. 2. If overall lifetime risk for the development of breast cancer is 20% or higher, the patient may qualify for future screening with alternating mammogram and breast MRI. [facility], , 01/26/2024 6:57 PM. Electronically signed and approved by: Randal Fu M.D. Radiologist
== END | disposition home or self-care (01) ==
LOC: RADMAMWWP 12:46
PROVIDERS: ATTEND Family Medicine
CPT/HCPCS: 77063; 77067